=== PATIENT | male | born 1940 | race Caucasian/White ===

== ENCOUNTER 2016-08-27 11:19 | Outpatient (CLI) | payer MEDICARE ==
[2016-08-27 14:00] LABS: Hemoglobin A1c 8.2 % (4.0-6.0)
== END 2016-08-27 11:20 | disposition home or self-care (01) ==
LOC: NAV LAB 11:19
PROVIDERS: ATTEND Family Medicine
DX: E11.65 Type 2 diabetes mellitus with hyperglycemia (principal)
CPT/HCPCS: 36415; 83036

== ENCOUNTER 2016-11-25 09:52 | Outpatient (CLI) | payer MEDICARE ==
[2016-11-25 10:44] LABS: Hemoglobin A1c 8.5 % (4.0-6.0)
== END 2016-11-25 09:53 | disposition home or self-care (01) ==
LOC: NAV LAB 09:52
PROVIDERS: ATTEND Family Medicine
DX: E11.65 Type 2 diabetes mellitus with hyperglycemia (principal)
CPT/HCPCS: 36415; 83036

== ENCOUNTER 2017-04-23 16:45 | Outpatient (CLI) | payer MEDICARE ==
[2017-04-23 16:54] LABS: #Eosinphils 0.1 thou/uL (0.0-0.7); #Lymphocytes 1.7 thou/uL (1.20-3.40); #Monocytes 0.5 thou/uL (0.11-0.59); #Neutrophils 4.9 thou/uL (1.40-6.50); %Basophils 0.6 % (0.0-1.0); %Eosinophils 0.9 % (0.0-10.0); %Lymphocytes 23.1 % (21.0-51.0); %Monocytes 7.2 % (0.0-10.0); %Neutrophils 68.1 % (42.0-75.0); Hemoglobin 15.6 g/dL (14.0-18.0); Mean Corpuscular HGB CONC 32.4 g/dL (32.0-36.0); Mean Corpuscular Hemoglobin 29.3 pg (27.0-31.0); Mean Corpuscular Volume 90.6 fl (80.0-94.0); Mean Platelet Volume 9.7 fL (7.4-10.4); Platelet Count 172 thou/uL (130-400); RBC Distribution Width 12.5 % (11.5-14.5); Red Blood Cell (RBC) Count 5.32 mill/uL (4.70-6.10); White Blood Cell (WBC) Count 7.2 thou/uL (4.8-10.8)
[2017-04-23 17:14] LABS: ALT (SGPT) 51 U/L (8-55); AST (SGOT) 34 U/L (5-34); Albumin 3.8 g/dL (3.4-4.8); Alkaline Phosphatase 88 U/L (40-150); Anion Gap 14 mmol/L (10-20); BUN (Urea Nitrogen) 12 mg/dL (8.4-25.7); Bilirubin, Direct 0.3 mg/dL (0.1-0.3); Bilirubin, Total 0.8 mg/dL (0.2-1.2); Calc. Creatinine Clearance 0 mL/min (70-130); Calcium 10.3 mg/dL (7.8-10.44); Carbon Dioxide 28 mmol/L (23-31); Chloride 99 mmol/L (98-107); Estimated GFR-MDRD 75; Glucose 304 mg/dL (83-110); Protein, Total 7.6 g/dL (5.8-8.1); Sodium 136 mmol/L (136-145)
[2017-04-23 22:05] LABS: Bilirubin Negative (Negative); Blood, Urine Large (Negative); Clarity Slightly Cloudy (Clear); Glucose, Urine (Dipstick) >=1000 mg/dL (Negative); Leukocyte Negative (Negative); Nitrite Negative (Negative); Protein, Urine (Dipstick) 100 mg/dL (Neg-Trace); Specific Gravity, Urine 1.015 (1.005-1.030); Urobilinogen 0.2 mg/dL (0.2-1.0)
[2017-04-23 22:06] LABS: Bacteria/HPF Rare-Few HPF (None Seen); RBC/HPF GREATER THAN 50-TNTC HPF (0-3); Squamous Epithelial 0-3 HPF (0-3); WBC/HPF 0-3 HPF (0-3)
== END 2017-04-23 16:46 | disposition home or self-care (01) ==
LOC: NAV LAB 16:45
PROVIDERS: ATTEND Family Medicine
DX: R31.0 Gross hematuria (principal); R82.99 Other abnormal findings in urine
CPT/HCPCS: 36415; 80048; 80076; 81001; 85025

== ENCOUNTER 2019-03-05 23:58 | Emergency (ER) | payer MEDICARE ==
[2019-03-06] MEDS ORDERED: Acetaminophen 500 MG TAB ONE (00:24)
[2019-03-06 00:28] LABS: Bilirubin Negative (Negative); Blood, Urine Moderate (Negative); Clarity Slightly Cloudy (Clear); Glucose, Urine (Dipstick) Negative (Negative); Leukocyte Large (Negative); Nitrite Negative (Negative); Protein, Urine (Dipstick) 30 mg/dL (Neg-Trace); Urobilinogen 0.2 mg/dL (Less than 2)
[2019-03-06] MEDS ORDERED: Sodium Chloride 0.9% 1,000 ML ONE (00:39)
[2019-03-06 00:53] LABS: #Basophils 0.1 thou/uL (0.0-0.2); #Lymphocytes 1.3 thou/uL (1.20-3.40); #Neutrophils 10.5 thou/uL (1.40-6.50); %Basophils 0.5 % (0.0-1.0); %Eosinophils 0.3 % (0.0-10.0); %Lymphocytes 10.4 % (21.0-51.0); %Monocytes 7.4 % (0.0-10.0); %Neutrophils 81.4 % (42.0-75.0); Hemoglobin 14.4 g/dL (14.0-18.0); Mean Corpuscular HGB CONC 33.3 g/dL (32.0-36.0); Mean Corpuscular Hemoglobin 29.7 pg (27.0-31.0); Mean Corpuscular Volume 89.2 fL (78.0-98.0); Mean Platelet Volume 7.8 fL (7.4-10.4); Platelet Count 200 thou/uL (130-400); RBC Distribution Width 12.3 % (11.5-14.5); Red Blood Cell (RBC) Count 4.83 mill/uL (4.70-6.10); White Blood Cell (WBC) Count 12.9 thou/uL (4.8-10.8)
[2019-03-06 00:55] LABS: ALT (SGPT) 35 U/L (8-55); AST (SGOT) 26 U/L (5-34); Albumin 4.2 g/dL (3.4-4.8); Alkaline Phosphatase 125 U/L (40-150); Anion Gap 16 mmol/L (10-20); BUN (Urea Nitrogen) 14 mg/dL (8.4-25.7); Bilirubin, Total 1.2 mg/dL (0.2-1.2); Calc. Creatinine Clearance 0 mL/min (70-130); Calcium 10.2 mg/dL (7.8-10.44); Carbon Dioxide 25 mmol/L (23-31); Chloride 100 mmol/L (98-107); Estimated GFR-MDRD 50; Globulin 4.3 g/dL (2.4-3.5); Glucose 156 mg/dL (83-110); Potassium 3.8 mmol/L (3.5-5.1); Protein, Total 8.5 g/dL (5.8-8.1); Sodium 137 mmol/L (136-145)
[2019-03-06 00:56] LABS: WBC/HPF 21-50 HPF (0-3)
[2019-03-06 00:57] LABS: Bacteria/HPF 3+ HPF (None Seen)
[2019-03-06] MEDS ORDERED: cefTRIAXone\\ROCEPHIN 1 GM VIAL ONE (01:10)
[2019-03-06] MEDS ORDERED: Ondansetron PF 4 MG/2 ML Vial ONE (01:17)
== END 2019-03-06 02:22 | disposition short-term general hospital (02) ==
LOC: NAV ERS 23:58
DX: R31.9 Hematuria, unspecified (principal); F32.9 Major depressive disorder, single episode, unspecified; E11.319 Type 2 diabetes mellitus with unspecified diabetic retinopathy without macular edema; E11.9 Type 2 diabetes mellitus without complications; J45.909 Unspecified asthma, uncomplicated; E78.5 Hyperlipidemia, unspecified; I10 Essential (primary) hypertension; K21.9 Gastro-esophageal reflux disease without esophagitis; Z79.4 Long term (current) use of insulin; Z79.899 Other long term (current) drug therapy
CPT/HCPCS: 36415; 80053; 81003; 81015; 83605; 84484; 85025; 87040; 87077; 87086; 87186; 93005; 96361; 96374; 96375; J0696; J2405; J7050

== ENCOUNTER 2019-10-06 12:37 | Emergency (ER) | payer MEDICARE | END 2019-10-06 13:10 | disposition home or self-care (01) | LOC: NAV ERS 12:37 | DX: J20.9 Acute bronchitis, unspecified (principal); I11.0 Hypertensive heart disease with heart failure; I50.9 Heart failure, unspecified; J45.909 Unspecified asthma, uncomplicated; K21.9 Gastro-esophageal reflux disease without esophagitis; E11.319 Type 2 diabetes mellitus with unspecified diabetic retinopathy without macular edema; E78.5 Hyperlipidemia, unspecified; E78.00 Pure hypercholesterolemia, unspecified; F32.9 Major depressive disorder, single episode, unspecified; Z79.4 Long term (current) use of insulin; Z79.899 Other long term (current) drug therapy; Z79.01 Long term (current) use of anticoagulants | CPT/HCPCS: 99283 ==

== ENCOUNTER 2019-10-16 11:41 | Emergency (ER) | payer MEDICARE ==
[2019-10-16 13:07] LABS: #Basophils 0.1 thou/uL (0.0-0.2); #Eosinphils 0.1 thou/uL (0.0-0.7); #Lymphocytes 0.8 thou/uL (1.20-3.40); #Monocytes 0.9 thou/uL (0.11-0.59); #Neutrophils 7.2 thou/uL (1.40-6.50); %Basophils 1.1 % (0.0-1.0); %Eosinophils 1.1 % (0.0-10.0); %Monocytes 9.3 % (0.0-10.0); %Neutrophils 79.5 % (42.0-75.0); Hemoglobin 12.4 g/dL (14.0-18.0); Mean Corpuscular HGB CONC 31.8 g/dL (32.0-36.0); Mean Corpuscular Hemoglobin 28.3 pg (27.0-31.0); Mean Corpuscular Volume 89.1 fL (78.0-98.0); Mean Platelet Volume 8.5 fL (7.4-10.4); Platelet Count 274 thou/uL (130-400); RBC Distribution Width 13.8 % (11.5-14.5); Red Blood Cell (RBC) Count 4.39 mill/uL (4.70-6.10); White Blood Cell (WBC) Count 9.1 thou/uL (4.8-10.8)
[2019-10-16] MEDS ORDERED: methylPREDNISolone Sod Succ/PF 125 MG/2 ML VIAL ONE (13:12)
--- NOTE | 2019-10-16 13:13 | RAD ---
PA AND LATERAL VIEWS CHEST: Date: 10/16/2019 HISTORY: Cough. Shortness of breath. Chest pain. FINDINGS/IMPRESSION: Comparison made with exam of 08/30/2014. The heart size is normal. There is a right-sided pleural effusion. There is suggestion of a mass in t he right hilar/perihilar region. No pneumothoraces are seen. The left lung is clear. There are degene rative changes in the spine. Further evaluation with contrast enhanced CT scan is recommended. POS: OFF
[2019-10-16 13:23] LABS: ALT (SGPT) 66 U/L (8-55); AST (SGOT) 33 U/L (5-34); Albumin 3.3 g/dL (3.4-4.8); Alkaline Phosphatase 246 U/L (40-110); Anion Gap 15 mmol/L (10-20); BUN (Urea Nitrogen) 22 mg/dL (8.4-25.7); Bilirubin, Total 0.6 mg/dL (0.2-1.2); CK (CPK) 33 U/L (30-200); Calc. Creatinine Clearance 0 mL/min (70-130); Calcium 8.5 mg/dL (7.8-10.44); Carbon Dioxide 25 mmol/L (23-31); Chloride 104 mmol/L (98-107); Estimated GFR-MDRD 53; Globulin 3.2 g/dL (2.4-3.5); Glucose 183 mg/dL (83-110); Potassium 4.3 mmol/L (3.5-5.1); Protein, Total 6.5 g/dL (5.8-8.1); Sodium 140 mmol/L (136-145)
== END 2019-10-16 14:02 | disposition short-term general hospital (02) ==
LOC: NAV ERS 11:41
DX: J90 Pleural effusion, not elsewhere classified (principal); R80.9 Proteinuria, unspecified; K21.9 Gastro-esophageal reflux disease without esophagitis; J45.909 Unspecified asthma, uncomplicated; E11.9 Type 2 diabetes mellitus without complications; E78.5 Hyperlipidemia, unspecified; E78.00 Pure hypercholesterolemia, unspecified; F32.9 Major depressive disorder, single episode, unspecified; I11.0 Hypertensive heart disease with heart failure; I50.9 Heart failure, unspecified; Z79.899 Other long term (current) drug therapy; Z79.4 Long term (current) use of insulin
CPT/HCPCS: 71046; 80053; 82550; 83880; 84484; 85025; 93005; 94640; 96374; J2930; J7620

== ENCOUNTER 2020-01-04 13:25 | Outpatient (CLI) | payer MEDICARE ==
--- NOTE | 2020-01-04 13:51 | RAD ---
PA AND LATERAL VIEWS OF THE CHEST: 01/04/20 HISTORY: Shortness of breath. Colon cancer. COMPARISON: 11/04/19. FINDINGS/IMPRESSION: A right sided Port-A-Cath has been placed in the interim with tip in the projection of the SVC. Chron ic pleural parenchymal changes on the right again seen. No pneumothoraces or lobar consolidation is i dentified. There are degenerative changes in the spine and acromioclavicular joints bilaterally. POS: [facility]
== END 2020-01-04 13:26 | disposition home or self-care (01) ==
LOC: NAV RAD 13:25
PROVIDERS: ATTEND Nurse Practitioner Family
DX: R06.02 Shortness of breath (principal); C18.2 Malignant neoplasm of ascending colon; M19.011 Primary osteoarthritis, right shoulder; M19.012 Primary osteoarthritis, left shoulder; M47.9 Spondylosis, unspecified
CPT/HCPCS: 71046